=== PATIENT | male | born 1955 | race Caucasian/White ===

== ENCOUNTER 2021-04-23 19:01 | Inpatient (IN) | payer MEDICARE, BC ==
[~2021-04-23] VITALS: Ht 172.7 cm; Wt 82.5 kg
[2021-04-23] MEDS ORDERED: ALPR0.5T8 PO (19:29)
[2021-04-23] MEDS ORDERED: GABA-1181 PO (19:29)
[2021-04-23] MEDS ORDERED: LISI20TA24 PO (19:29)
[2021-04-23] MEDS ORDERED: ELVI1TAB PO (19:34)
[2021-04-23] MEDS ORDERED: VANCOMYCIN HCL 1 GM/D5% WATER 200 ML IV ONE (19:45)
[2021-04-23 20:03] LABS: COVID AG,FIA SOURCE NASOPHARYNGEAL
[2021-04-23 20:06] LABS: BASOPHILS % (AUTO) 0.5 % (0.0-2.0); EOSINOPHILS % (AUTO) 2.4 % (1.0-6.0); HEMATOCRIT 31.7 % (41-53); HEMOGLOBIN 10.3 g/dL (13.5-17.5); LYMPHOCYTES # (AUTO) 1.2 K/uL (1.0-4.8); LYMPHOCYTES % (AUTO) 15.8 % (22.0-44.0); MEAN CORPUSCULAR HEMOGLOBIN 25.3 pg (26.0-34.0); MEAN CORPUSCULAR HGB CONC 32.4 G/dL (31.0-37.0); MEAN CORPUSCULAR VOLUME 78 fL (80-100); MONOCYTES # (AUTO) 0.9 K/uL (0.1-1.0); MONOCYTES % (AUTO) 12.2 % (2.0-9.0); NEUTROPHILS # (AUTO) 5.3 K/uL (1.8-7.7); NEUTROPHILS % (AUTO) 69.1 % (40.0-70.0); PLATELET COUNT (AUTO) 388 K/uL (150-450); RED BLOOD CELL COUNT(AUTO) 4.05 MIL/uL (4.50-5.90); RED CELL DISTRIBUTION WIDTH 20.2 % (11.5-14.5)
[2021-04-23 20:12] LABS: ANION GAP 7 mmol/L (8-16); CALCIUM, TOTAL 8.7 mg/dL (8.8-10.5); CARBON DIOXIDE 30 mmol/L (22-29); CHLORIDE 104 mmol/L (98-107); CREATININE 1.05 mg/dL (0.60-1.30); GLOMERULAR FILTR. RATE CALC > 60 mL/min (>60); GLUCOSE,RANDOM 98 mg/dL (70-110); POTASSIUM 3.7 mmol/L (3.5-5.1); SODIUM SERUM 141 mmol/L (136-145); UREA NITROGEN, BLOOD 17 mg/dL (7-18)
[2021-04-23 20:18] LABS: ALANINE AMINOTRANSFERASE 22 U/L (12-78); ALBUMIN 3.1 g/dL (3.4-5.0); ALKALINE PHOSPHATASE 116 U/L (46-116); ASPARTATE AMINOTRANSFERASE 19 U/L (15-37); BILIRUBIN,TOTAL 0.3 mg/dL (0.1-1.0); TOTAL PROTEIN, SERUM 7.4 g/dL (6.4-8.2)
[2021-04-23] MEDS ORDERED: SODIUM CHLORIDE 0.9% 2,400 ML IV ONE (21:00)
[2021-04-23] MEDS ORDERED: ONDANSETRON HCL 4 MG/2 ML VIAL IVP PRN (21:00)
[2021-04-23] MEDS ORDERED: DEXTROSE 50%-WATER 25 GM/50 ML SYRINGE IVP PRN (21:00)
[2021-04-23] MEDS ORDERED: ACETAMINOPHEN 325 MG TABLET PO PRN (21:00)
[2021-04-23 21:16] LABS: RETICULOCYTE % (AUTO) 1.5 % (0.5-2.3)
[2021-04-23] MEDS ORDERED: IOHEXOL 350 MG/ML 100 ML VIAL ONE (21:31)
[2021-04-23] MEDS ORDERED: SODIUM CHLORIDE 0.9% 100 ML ONE (21:31)
[2021-04-23] MEDS: INSULIN GLARGINE,HUM.REC.ANLOG 100 UNITS/ML SQ SCH (21:57)
[2021-04-23] MEDS: CefTRIAXone 1 GM/DEXTROSE 50 ML IV SCH (21:58)
[2021-04-23 22:35] VITALS: BP 161/102
[2021-04-23] MEDS: HEPARIN SODIUM,PORCINE 5,000 UNITS/ML VIAL SQ SCH (23:32)
[2021-04-23] MEDS: ALPRAZolam 0.25 MG TABLET PO PRN (23:32)
[2021-04-24] MEDS ORDERED: VANCOMYCIN HCL 500 MG in DEXTROSE 5%-WATER 100 ML IV ONE ×2
[2021-04-24] MEDS ORDERED: INFLUENZA VIRUS VACCINE QVS 2021-22 (6MO+)/PF 60 MCG/0.5 ML SYRINGE IM. ONE (01:00)
[2021-04-24 05:05] VITALS: BP 152/97
[2021-04-24 05:51] LABS: BASOPHILS % (AUTO) 0.4 % (0.0-2.0); HEMATOCRIT 31.2 % (41-53); LYMPHOCYTES # (AUTO) 1.7 K/uL (1.0-4.8); LYMPHOCYTES % (AUTO) 22.3 % (22.0-44.0); MEAN CORPUSCULAR HEMOGLOBIN 25.3 pg (26.0-34.0); MEAN CORPUSCULAR HGB CONC 32.2 G/dL (31.0-37.0); MEAN CORPUSCULAR VOLUME 79 fL (80-100); MONOCYTES # (AUTO) 0.9 K/uL (0.1-1.0); MONOCYTES % (AUTO) 11.5 % (2.0-9.0); NEUTROPHILS # (AUTO) 4.9 K/uL (1.8-7.7); NEUTROPHILS % (AUTO) 62.8 % (40.0-70.0); PLATELET COUNT (AUTO) 372 K/uL (150-450); RED BLOOD CELL COUNT(AUTO) 3.97 MIL/uL (4.50-5.90)
[2021-04-24 06:02] LABS: ANION GAP 8 mmol/L (8-16); CALCIUM, TOTAL 8.5 mg/dL (8.8-10.5); CARBON DIOXIDE 29 mmol/L (22-29); CHLORIDE 107 mmol/L (98-107); CREATININE 0.77 mg/dL (0.60-1.30); GLOMERULAR FILTR. RATE CALC > 60 mL/min (>60); GLUCOSE,RANDOM 106 mg/dL (70-110); POTASSIUM 3.7 mmol/L (3.5-5.1); SODIUM SERUM 144 mmol/L (136-145); UREA NITROGEN, BLOOD 12 mg/dL (7-18)
[2021-04-24 06:49] LABS: GLUCOMETER DEV NAME(LOC) 6N.1; GLUCOSE,POINT OF CARE 99 MG/DL (70-110)
[2021-04-24 07:47] VITALS: BP 140/98
[2021-04-24] MEDS ORDERED: VANCOMYCIN HCL 1 GM/D5% WATER 200 ML IV SCH (08:00)
[2021-04-24] MEDS: HEPARIN SODIUM,PORCINE 5,000 UNITS/ML VIAL SQ SCH ×3 (08:47→23:50)
[2021-04-24] MEDS: LISINOPRIL 20 MG TABLET PO SCH (08:47)
[2021-04-24] MEDS: ALPRAZolam 0.5 MG TABLET PO SCH (08:47)
[2021-04-24] MEDS: GABAPENTIN 300 MG CAPSULE PO SCH ×3 (08:47→20:02)
[2021-04-24] MEDS: VANCOMYCIN HCL 1.25 GM in DEXTROSE 5%-WATER 250 ML IV SCH ×2 (08:48→19:48)
[2021-04-24] MEDS ORDERED: [UNRECOGNIZED DRUG - OTHER] PO SCH (09:00)
[2021-04-24 15:59] VITALS: BP 135/95
[2021-04-24] MEDS: INSULIN GLARGINE,HUM.REC.ANLOG 100 UNITS/ML SQ SCH (20:03)
[2021-04-24 20:08] LABS: GLUCOMETER DEV NAME(LOC) 6N.1; GLUCOSE,POINT OF CARE 103 MG/DL (70-110)
[2021-04-24 20:35] VITALS: BP 127/88
[2021-04-24] MEDS: CefTRIAXone 1 GM/DEXTROSE 50 ML IV SCH (21:29)
[2021-04-24] MEDS: ALPRAZolam 0.25 MG TABLET PO PRN (21:29)
[2021-04-25 00:17] LABS: GLUCOMETER DEV NAME(LOC) 6S.1; GLUCOSE,POINT OF CARE 130 MG/DL (70-110)
[2021-04-25 00:17] LABS: GLUCOMETER DEV NAME(LOC) 6S.1; GLUCOSE,POINT OF CARE 94 MG/DL (70-110)
[2021-04-25 05:12] VITALS: BP 140/76
[2021-04-25 05:53] LABS: ANION GAP 5 mmol/L (8-16); CALCIUM, TOTAL 8.5 mg/dL (8.8-10.5); CARBON DIOXIDE 30 mmol/L (22-29); CHLORIDE 107 mmol/L (98-107); CREATININE 0.85 mg/dL (0.60-1.30); GLOMERULAR FILTR. RATE CALC > 60 mL/min (>60); GLUCOSE,RANDOM 148 mg/dL (70-110); SODIUM SERUM 142 mmol/L (136-145); UREA NITROGEN, BLOOD 12 mg/dL (7-18)
[2021-04-25] MEDS: INSULIN LISPRO 100 UNITS/ML SQ PRN ×3 (05:54→20:29)
[2021-04-25] MEDS: HEPARIN SODIUM,PORCINE 5,000 UNITS/ML VIAL SQ SCH ×3 (08:09→23:39)
[2021-04-25] MEDS: LISINOPRIL 20 MG TABLET PO SCH (08:09)
[2021-04-25] MEDS: VANCOMYCIN HCL 1.25 GM in DEXTROSE 5%-WATER 250 ML IV SCH ×2 (08:09→19:27)
[2021-04-25] MEDS: GABAPENTIN 300 MG CAPSULE PO SCH ×3 (08:13→20:27)
[2021-04-25 08:15] VITALS: BP 130/79
[2021-04-25] MEDS: ALPRAZolam 0.5 MG TABLET PO SCH (08:17)
[2021-04-25 15:23] VITALS: BP 144/92
[2021-04-25 19:25] LABS: GLUCOMETER DEV NAME(LOC) 6N.1; GLUCOSE,POINT OF CARE 120 MG/DL (70-110)
[2021-04-25 19:25] LABS: GLUCOMETER DEV NAME(LOC) 6N.1; GLUCOSE,POINT OF CARE 107 MG/DL (70-110)
[2021-04-25 19:25] LABS: GLUCOMETER DEV NAME(LOC) 6N.1; GLUCOSE,POINT OF CARE 221 MG/DL (70-110)
[2021-04-25 19:39] VITALS: BP 146/92
[2021-04-25] MEDS: INSULIN GLARGINE,HUM.REC.ANLOG 100 UNITS/ML SQ SCH (20:29)
[2021-04-25] MEDS: CefTRIAXone 1 GM/DEXTROSE 50 ML IV SCH (21:21)
[2021-04-25] MEDS: ALPRAZolam 0.25 MG TABLET PO PRN (21:21)
[2021-04-26 04:15] VITALS: BP 136/85
[2021-04-26 05:52] LABS: GLUCOMETER DEV NAME(LOC) 6N.1; GLUCOSE,POINT OF CARE 172 MG/DL (70-110)
[2021-04-26 07:03] LABS: ANION GAP 10 mmol/L (8-16); CALCIUM, TOTAL 8.5 mg/dL (8.8-10.5); CARBON DIOXIDE 30 mmol/L (22-29); CHLORIDE 107 mmol/L (98-107); CREATININE 0.73 mg/dL (0.60-1.30); GLOMERULAR FILTR. RATE CALC > 60 mL/min (>60); GLUCOSE,RANDOM 102 mg/dL (70-110); SODIUM SERUM 147 mmol/L (136-145); UREA NITROGEN, BLOOD 12 mg/dL (7-18); VANCOMYCIN,RANDOM 12.4 mcg/mL (25.0-50.0)
[2021-04-26 08:00] VITALS: BP 137/80
[2021-04-26] MEDS ORDERED: VANCOMYCIN HCL 1 GM/D5% WATER 200 ML IV SCH (08:00)
[2021-04-26] MEDS ORDERED: MULTIVITAMINS WITH MINERALS, THERAPEUTIC TABLET PO SCH (09:00)
[2021-04-26] MEDS: ALPRAZolam 0.5 MG TABLET PO SCH (09:04)
[2021-04-26] MEDS: HEPARIN SODIUM,PORCINE 5,000 UNITS/ML VIAL SQ SCH (09:05)
[2021-04-26] MEDS: LISINOPRIL 20 MG TABLET PO SCH (09:05)
[2021-04-26] MEDS: GABAPENTIN 300 MG CAPSULE PO SCH (09:06)
[2021-04-26] MEDS ORDERED: SULF-261 PO (11:35)
[2021-04-26] MEDS ORDERED: CEPH500C3 PO (11:35)
[2021-04-26] MEDS: INSULIN LISPRO 100 UNITS/ML SQ PRN (11:37)
[2021-04-26] MEDS: ALPRAZolam 0.25 MG TABLET PO PRN (11:54)
[2021-04-26] MEDS ORDERED: ALPR0.5T8 PO (11:54)
[2021-04-26 15:33] VITALS: BP 112/57
[2021-04-26 23:41] LABS: GLUCOMETER DEV NAME(LOC) 6N.1; GLUCOSE,POINT OF CARE 135 MG/DL (70-110)
[2021-04-26 23:41] LABS: GLUCOMETER DEV NAME(LOC) 6N.1; GLUCOSE,POINT OF CARE 99 MG/DL (70-110)
== END 2021-04-26 16:25 | disposition home health service (06) | DRG 603 ==
LOC: EDUNIT# 19:01 → EMS 19:08 → 6N 22:33
PROVIDERS: ADMIT Internal Medicine; ATTEND Internal Medicine
DX: L03.115 Cellulitis of right lower limb (principal); I10 Essential (primary) hypertension; F19.10 Other psychoactive substance abuse, uncomplicated; F32.A Depression, unspecified; F17.210 Nicotine dependence, cigarettes, uncomplicated; Z20.822 Contact with and (suspected) exposure to COVID-19; Z79.899 Other long term (current) drug therapy; Z88.8 Allergy status to other drugs, medicaments and biological substances; Z71.6 Tobacco abuse counseling
CPT/HCPCS: 73701; 80048; 80053; 80202; 82962; 83540; 83550; 83735; 83880; 85025; 85045; 87040; 90686; 93971; 97162; 97165; 99285; J0696; J1644; J1815; J3370; J7050; J7060; Q9967

== ENCOUNTER 2025-01-20 00:56 | Emergency (ER) | payer MEDICARE, MEDICAID ==
[~2025-01-20] VITALS: Ht 172.7 cm; Wt 92.7 kg
[~2025-01-20 00:56] MED LIST: ALPR0.5T8 PO; CEPH-558 PO; ELVI1TAB PO; GABA-1181 PO; LISI20TA24 PO; SULF-261 PO
[2025-01-20 01:52] LABS: PLATELET COUNT (AUTO) 330 K/uL (150-450); RED BLOOD CELL COUNT(AUTO) 3.92 MIL/uL (4.50-5.90); RED CELL DISTRIBUTION WIDTH 18.5 % (11.5-14.5); WHITE BLOOD COUNT (AUTO) 8.5 K/uL (4.5-11.0)
[2025-01-20 02:04] LABS: CALCIUM, TOTAL 8.2 mg/dL (8.8-10.5); CREATININE 0.79 mg/dL (0.60-1.30); GLOMERULAR FILTR. RATE CALC > 60 mL/min (>60); GLUCOSE,RANDOM 105 mg/dL (70-110); SODIUM SERUM 139 mmol/L (136-145); UREA NITROGEN, BLOOD 18 mg/dL (7-18)
[2025-01-20 02:13] LABS: TROPONIN I-HIGH SENSITIVITY 6 ng/L (<76)
[2025-01-20] MEDS: APIXABAN 5 MG TABLET PO ONE (02:54)
[2025-01-20 07:00] VITALS: TEMP 98.5
[2025-01-20] MEDS ORDERED: CLOP75TA32 PO (08:48)
[2025-01-20 11:40] LABS: C-REACTIVE PROTEIN QUANT 2.69 mg/dL (0.00-0.30)
[2025-01-20 11:43] LABS: LACTIC ACID 1.6 mmol/L (0.4-2.0)
[2025-01-20] MEDS: SODIUM CHLORIDE 0.9% 900 ML IV ONE (11:53)
[2025-01-20] MEDS: VANCOMYCIN 1.5 GM/WATER(PEG) 300 ML IV ONE (11:54)
[2025-01-20 13:51] LABS: APPEARANCE,URINE HAZY (CLEAR); GLUCOSE, URINE (UA) NEGATIVE (NEGATIVE); LEUKOCYTE ESTERASE ,URINE NEGATIVE (NEGATIVE); NITRATE,URINE NEGATIVE (NEGATIVE); OCCULT BLOOD,URINE NEGATIVE (NEGATIVE); SPECIFIC GRAVITIY, URINE 1.019 (1.003-1.030)
[2025-01-20] MEDS: VANCOMYCIN 1.5 GM/WATER(PEG) 300 ML IV SCH (21:18)
[2025-01-21 01:51] VITALS: BP 122/56; PULSE 68; RESP 17; O2SAT 97
[2025-01-21] MEDS: PIPERACILLIN/TAZO 3.375 GM/D5W 50 ML IV ONE (02:20)
== END 2025-01-21 03:12 ==
LOC: EMS 00:58
DX: M86.151 Other acute osteomyelitis, right femur (principal); F32.A Depression, unspecified; I10 Essential (primary) hypertension; F41.9 Anxiety disorder, unspecified; F15.90 Other stimulant use, unspecified, uncomplicated; F17.210 Nicotine dependence, cigarettes, uncomplicated; Z98.890 Other specified postprocedural states; Z88.2 Allergy status to sulfonamides; Z88.1 Allergy status to other antibiotic agents; Z86.718 Personal history of other venous thrombosis and embolism; Z85.048 Personal history of other malignant neoplasm of rectum, rectosigmoid junction, and anus; Z79.02 Long term (current) use of antithrombotics/antiplatelets; Z79.01 Long term (current) use of anticoagulants; Z79.899 Other long term (current) drug therapy
CPT/HCPCS: 99285; 96365; 96366; 93971; 71045; 80048; 81003; 83605; 83880; 84484; 85025; 85610; 85651; 85730; 86140; 87040; 36415; 72170; 93005; 84145; 96367; J3490; J2543